=== PATIENT | female | born 1930 | race Caucasian/White ===

== ENCOUNTER → 2017-12-24 | Outpatient (CLI) | payer MEDICARE, BC ==
[2017-12-24 11:06] LABS: Source, Urine Clean Catch
[2017-12-24 11:15] LABS: Bilirubin, Urine Neg (Neg); Blood, Urine 1+ (Neg); Glucose Qualitative, Urine Neg (Neg); Ketones, Urine Neg (Neg); Leukocyte Esterase, Urine 3+ (Neg); Nitrite, Urine Pos (Neg); Protein, Urine Neg (Neg); Urobilinogen, Urine NORM (Normal)
[2017-12-24 11:29] LABS: Appearance, Urine Cloudy (Clear); Color, Urine Yellow (P-Yellow)
[2017-12-24 11:31] LABS: Squamous Epithelial Cells Few /hpf (Few); White Blood Cells, Urine 50-100 /hpf (0-5)
[2017-12-24 11:32] LABS: Bacteria Many /hpf
== END | disposition home or self-care (01) ==
LOC: LAB 07:00 → LAB SHORT 07:00
PROVIDERS: Hospitalist
DX: N39.0 Urinary tract infection, site not specified (principal)
CPT/HCPCS: 81001; 87077; 87086; 87186

== ENCOUNTER 2018-01-19 11:42 | Emergency (ER) | payer MEDICARE, BC ==
[~2018-01-19] VITALS: Ht 165.1 cm; Wt 59.0 kg
[2018-01-19] MEDS ORDERED: Milk Of Ma400 MG/5 M PO (12:58)
[2018-01-19] MEDS ORDERED: AMLO5 PO (12:59)
[2018-01-19] MEDS ORDERED: Carbidopa-Levo1 EAC1 PO (13:01)
== END 2018-01-19 14:46 | disposition home or self-care (01) ==
LOC: ER 11:42
DX: S43.101A Unspecified dislocation of right acromioclavicular joint, initial encounter (principal); W18.30XA Fall on same level, unspecified, initial encounter; I10 Essential (primary) hypertension; F03.90 Unspecified dementia, unspecified severity, without behavioral disturbance, psychotic disturbance, mood disturbance, and anxiety
CPT/HCPCS: 73030; 99284-25